=== PATIENT | male | born 1990 | race Caucasian/White ===

== ENCOUNTER → 2017-01-26 | Outpatient (CLI) | payer OTHER ==
[~2017-01-26] MED LIST: HYDR-34 PO
--- NOTE | 2017-01-26 09:19 | Diagnostic Imaging Report ---
Three views of the right knee. INDICATION: Right knee pain. FINDINGS: No fracture, dislocation or radiopaque foreign body. There is soft tissue swelling anterior to the patella and the patellar tendon. No significant suprapatellar effusion is evident. The joint lining appears normal. IMPRESSION: Soft tissue swelling anterior to the patella and the patellar tendon area. Dictated by: Dictated on workstation # [id number]
== END ==
LOC: RAD 08:39
PROVIDERS: ATTEND Nurse Practitioner Family
DX: M79.89 Other specified soft tissue disorders (principal)
CPT/HCPCS: 73562